=== PATIENT | female | born 1935 | race Caucasian/White ===

== ENCOUNTER 2017-02-03 14:04 | Inpatient (IN) | payer MEDICARE ==
--- NOTE | ~2017-02-03 | CR63 ---
[facility] of [facility] & [facility] RADIOLOGY TEXT RESULTS PATIENT: THO CEDENO LOCATION: [facility] 569-01 : 37 UNIT #: [id number] AGE: [address]: Arnaud Adhikari MD SEX: F ORDER DR: [id number] [facility] [address] [place], [place] [address] [id number] I MR#: [id number] Acc #: [id number] NAME: THO CEDENO : 1935 SEX: F STUDY DATE/TIME: 02/07/2017 13:45 UNIT: [facility] ROOM: [facility] STUDY DESCRIPTION: CR Chest 2 View Attending Physician: Arnaud Adhikari M.D. Ordering Physician: Arnaud Adhikari M.D. Primary Care Physician: Jerry Campa M.D. MEDICAL IMAGING REPORT This report is preliminary unless electronic signature is present EXAM Two-view chest. HISTORY Shortness of air, chest pain x1 month. COMPARISON 02/05/17 FINDINGS Two-view of the chest demonstrates low lung volumes. Small amount of bibasilar atelectasis. Stable cardiomegaly, and diffuse aortic atherosclerotic changes. Generalized osteopenia with mild accentuation of the thoracic kyphosis with mild mid thoracic degenerative change. No sizeable effusions. No focal airspace disease. No pneumothorax. IMPRESSION Stable cardiomegaly and diffuse aortic atherosclerotic changes. Minimal bibasilar atelectasis. Dictated by... Juan Miguel Mitchell M.D. THIS IS AN ELECTRONICALLY VERIFIED REPORT Juan Miguel Mitchell M.D. at 02/07/2017 8:27 PM Lilian TD: 02/07/2017 17:26 JOB #: [id number] MEDICAL IMAGING REPORT Page 1 of 1 COPY
--- NOTE | ~2017-02-03 | CO ---
Unit #: [id number] #: [id number] Patient: THO THOMSON [id number] [address] [place], [place] [address] [id number] I MR#: [id number] NAME: THO THOMSON ROOM: 569 Age: 81 Sex: F Admission Date: 02/03/2017 : 1935 Attending Physician: Arnaud Adhikari M.D. Primary Care Physician: Jerry Campa M.D. Consultation Date: 02/04/2017 CONSULTATION REPORT HISTORY OF PRESENT ILLNESS Ms. Thomson is a 81-year-old white female, who is well known to our service. She sees Dr. Pepper and was hospitalized by him at [facility]. Hospitalist is Dr. Parvez Hernandez. She was admitted to [facility] last month for increasing shortness of breath, was treated in the usual fashion, and able to be discharged home. However, she has had increasing shortness of breath, but no sputum production, fever, chills, hemoptysis, or hoarseness. PAST MEDICAL HISTORY Significant for colon cancer, pancreatic cancer, hypertension, history of PE in the past, pulmonary fibrosis, and kidney disease. PAST SURGICAL HISTORY Includes appendectomy, breast surgery, cholecystectomy, colon surgery, hysterectomy, ovarian cyst removal and pancreatic surgery. ALLERGIES She claims allergies to codeine, Demerol, penicillin, streptomycin, sulfa, and Terramycin. FAMILY HISTORY Noncontributory. SOCIAL HISTORY Negative for smoking, drinking or illicit drug use. REVIEW OF SYSTEMS Mainly significant for weakness, shortness of breath, and easy fatigability. PHYSICAL EXAMINATION GENERAL: She is a heavy-set white female, in no acute distress. HEAD AND NECK: Significant for clean oropharynx. Pupils are round and reactive to light. Sclerae nonicteric. NECK: No supraclavicular or cervical adenopathy. Trachea is midline. Thyroid is small. CHEST: There is increased AP diameter of the chest with rales bilaterally. CARDIAC: Systolic murmurs present without rubs or gallops. ABDOMEN: Soft, nontender, without enlargement of liver or spleen. EXTREMITIES: Showed no clubbing, cyanosis or edema. JOINTS: Free of effusions or inflammation. There was no gross inflammatory rash and very little edema. She has truncal obesity. NEUROLOGIC: She is awake, alert, and oriented x3. She had no signs of Unit #: [id number] #: [id number] Patient: THO THOMSON acute neurologic demise or asymmetry. DIAGNOSTIC STUDIES LABORATORY RESULTS: Significant blood work, cultures are pending. Her sodium was 141, potassium 4.1, chloride 106, CO2 of 26, glucose 100, BUN of 33, creatinine 1.9. IMAGING STUDIES: Ventilation perfusion scan showed multiple perfusion defects, consistent with her chest x-ray which was fairly clear. Ventilation was within normal limits. IMPRESSION Acute on chronic respiratory failure. This may have probably related to mild degree of pulmonary fibrosis. We will plan on supplemental oxygen and inhaled bronchodilators, and IV steroids and p.o. antibiotics. Thank you very much for allowing us to participate in the care. Dictated by... Lori Ayon/jeremy TD: 02/05/2017 07:36 JOB #: [id number] CONSULTATION REPORT Page 1 of 1 X Antonio Baltazar MD X CONSULTATION REPORT
--- NOTE | ~2017-02-03 | CR72 ---
[facility] A Service of [facility] RADIOLOGY TEXT RESULTS PATIENT: THO CEDENO LOCATION: [place] [address] : 37 UNIT #: [id number] AGE: [address]: Arnaud Adhikari MD SEX: F ORDER DR: [id number] [facility] [address] [place], [place] [address] [id number] I MR#: [id number] Acc #: [id number] NAME: THO CEDENO : 1935 SEX: F STUDY DATE/TIME: 02/03/2017 1502 UNIT: [facility] ROOM: 10177 STUDY DESCRIPTION: CR Chest Single View Portable Attending Physician: Po Torres M.D. Ordering Physician: Aryan Reyes M.D. Primary Care Physician: Jerry Campa M.D. MEDICAL IMAGING REPORT This report is preliminary unless electronic signature is present EXAM Chest portable 02/03/2017 1502 hours CLINICAL HISTORY Shortness of air for 1 month. History of hypertension and colon carcinoma. COMPARISON Chest CT 04/12/2016 and portable chest film 04/13/2011 FINDINGS Portable upright chest demonstrates cardiomegaly and tortuous aorta. Lung volumes are slightly decreased. There are increased interstitial markings with basilar predominance. Prior high-resolution CT demonstrated nonspecific interstitial change with lower lobe predominance. Findings are felt likely chronic. IMPRESSION Low lung volumes with stable mild cardiomegaly and tortuous aorta. There is interstitial prominence in the mid and lower lung similar to CT scan 04/12/2016 perhaps increased from chest x-ray 2010. No definite acute pulmonary or pleural findings. Dictated by... Monica Tony M.D. THIS IS AN ELECTRONICALLY VERIFIED REPORT Monica Tony M.D. at 02/06/2017 10:35 AM Jose Eduardo TD: 02/03/2017 18:51 JOB #: [id number] MEDICAL IMAGING REPORT [facility] A Service of [facility] RADIOLOGY TEXT RESULTS PATIENT: THO CEDENO LOCATION: [facility] 569-01 : 37 UNIT #: [id number] AGE: [address]: Arnaud Adhikari MD SEX: F ORDER DR: Page 1 of 1 COPY
--- NOTE | ~2017-02-03 | HP ---
Unit #: [id number] #: [id number] Patient: THO CEDENO [id number] [place] [id number] [facility]. [place], [place] [address] [id number] I MR#: [id number] NAME: THO CEDENO ROOM: 91705 Age: 81 Sex: F Admission Date: 02/03/2017 : 1935 Attending Physician: Cristal Torres M.D. Primary Care Physician: Jerry Campa M.D. HISTORY AND PHYSICAL CHIEF COMPLAINT Shortness of breath. HISTORY OF PRESENT ILLNESS The patient is a 81-year-old female with a past medical history of COPD, pulmonary fibrosis, hypertension, colon and pancreatis cancer treated 19 years ago, brought to the emergency room complaining of the shortness of breath. The patient was recently discharged from the [facility] on the 04 of January with a history of DVTs and was started on the Eliquis and for the exacerbation of COPD. The patient stated the patient's shortness of breath started a month ago and has been gradually worsening to the point that she said that the patient was sent by the PCP to the hospital today. The patient denies any productive cough. The patient was started on the oral prednisone for the COPD exacerbation; denies any fever, chills, nausea or vomiting or chest pain. PAST MEDICAL HISTORY History of colon and pancreatic cancer, hypertension, history of a PE in the past, pulmonary fibrosis and kidney disease. PAST SURGICAL HISTORY Appendectomy, breast surgery, cholecystectomy, colon surgery, hysterectomy, ovarian cyst removal and pancreatic surgery. ALLERGIES Codeine, Demerol, penicillin, streptomycin, sulfa and Terramycin. FAMILY HISTORY Reviewed and none. SOCIAL HISTORY No history of smoking, alcohol or any illicit drug abuse use. REVIEW OF SYMPTOMS Fourteen-point review of symptoms performed and only pertinent positive findings as described above, remaining are negative. PHYSICAL EXAMINATION GENERAL APPEARANCE: On examination the patient is lying on a bed not in acute distress. VITAL SIGNS: Temperature 97.9, pulse 90, respiratory rate 18, blood pressure 123/84, sating 98% at 2L nasal cannula. HEENT: Head atraumatic/normocephalic. Pupils equal, round and reacting Unit #: [id number] #: [id number] Patient: WILIAN,THO to light and accommodation. Extraocular movements are intact. Dry mucous membrane. NECK: Supple. No JVD. LUNGS: Decreased air entry at the bases. Positive for wheezing. HEART: Regular rate and rhythm. ABDOMEN: Soft, positive bowel sounds. EXTREMITIES: No cyanosis. No clubbing. NEUROLOGIC: Alert, awake, oriented. No gross focal motor deficit. DIAGNOSTIC STUDIES LABORATORY DATA: INR is 1, sodium 140, potassium 3.6, chloride 101, bicarb 27, glucose 142, BUN 37, creatinine 2.1, calcium 8.9, AST 23, ALT is 16, alkaline phosphatase 59, WBC 11.8, hemoglobin 14.1, hematocrit 43.4, platelets 149, BNP is 245, lactic acid is 2.9, troponin less than 0.05. IMAGING: Chest x-ray shows low lung volumes and cardiomegaly in the past. No acute cardiopulmonary process. ASSESSMENT 1. Chronic obstructive pulmonary disease exacerbation. 2. Pulmonary fibrosis. 3. History of a deep venous thrombosis. 4. Acute kidney injury. PLAN Plan to admit the patient to the inpatient. Patient will be on IV steroid, Solu-Medrol 40 mEq q.8 h., and IV antibiotic levofloxacin and continue with the sepsis protocol. Will have the consultation here and the renal consult for the acute kidney injury and continue with the sepsis protocol and check the ABG and V/Q scan to rule out the PE and further recommendations will follow. Dictated by Lori Cardenas/kiesha TD: 02/03/2017 18:04 JOB #: [id number] HISTORY AND PHYSICAL Page 1 of 1 X CRISTAL TORRES MD HISTORY AND PHYSICAL
--- NOTE | ~2017-02-03 | NM69 ---
[facility] RADIOLOGY TEXT RESULTS PATIENT: THO CEDENO LOCATION: [facility] 569-01 : 37 UNIT #: [id number] AGE: [address]: Arnaud Adhikari MD SEX: F ORDER DR: [id number] [place] [id number] [facility]. [place], [place] [address] [id number] I MR#: [id number] Acc #: [id number] NAME: THO CEDENO : 1935 SEX: F STUDY DATE/TIME: 02/07/2017 10:10 UNIT: [facility] ROOM: [facility] STUDY DESCRIPTION: NM Pulm Vent and Perf Attending Physician: Arnaud Adhikari M.D. Ordering Physician: Preston Hernandez M.D. Primary Care Physician: Jerry Campa M.D. MEDICAL IMAGING REPORT This report is preliminary unless electronic signature is present EXAM V/Q scan. INDICATIONS Shortness of breath that started Monday night. The patient had a V/Q scan performed February 03, 2017. This could not be interpreted as high intermediate or low probability because the ventilation images were nondiagnostic. However, at that time, multiple perfusion defects were considered to be suspicious for pulmonary embolus. COMPARISON Comparison is made to PA and lateral chest radiograph performed today at 1:45 p.m. TECHNIQUE This does show cardiomegaly and overall diminished lung volumes. Atelectasis at the lung bases appears to have worsened when compared to the prior examination, although, I am not convinced I can see any new infiltrates. Patient was administered 32.3 mCi of technetium 99m DTPA and 5.73 mCi of technetium 99 MAA particles and images in multiple obliquities were obtained. FINDINGS Patient has at least 2 ventilation-perfusion mismatches. One seen within the left lung apex posteriorly and the other noted on both the TYLER and RPO images on the right. Study is felt to be high probability for pulmonary embolus. IMPRESSION High probability of V/Q scan. Dictated by... [facility] RADIOLOGY TEXT RESULTS PATIENT: THO CEDENO LOCATION: [facility] 569-01 : 37 UNIT #: [id number] AGE: [address]: Arnaud Adhikari MD SEX: F ORDER DR: Felicita Padgett M.D. THIS IS AN ELECTRONICALLY VERIFIED REPORT Felicita Padgett M.D. at 02/08/2017 4:51 PM AFF/jt TD: 02/07/2017 18:38 JOB #: [id number] MEDICAL IMAGING REPORT Page 1 of 1 COPY
--- NOTE | ~2017-02-03 | DS ---
Unit #: [id number] #: [id number] Patient: THO CEDENO [id number] [address] [address] [id number] I MR#: [id number] NAME: THO CEDENO ROOM: 569 Age: 81 Sex: F Admission Date: 02/03/2017 : 1935 Discharge Date: 02/08/2017 Attending Physician: Arnaud Adhikari M.D. Primary Care Physician: Jerry Campa M.D. DISCHARGE SUMMARY DISCHARGE DIAGNOSES 1. Acute on chronic hypoxic respiratory failure. 2. Pulmonary fibrosis. 3. Pulmonary embolism. 4. Acute kidney injury. 5. Drug-induced encephalopathy. 6. B12 deficiency. HOSPITAL COURSE The patient is a 81-year-old female who presented to the [facility] emergency department complaining of worsening shortness of breath. She had had hospitalization back in December for DVT, and was started on Eliquis. Patient had become suddenly worse in her shortness of breath and presented, and as a result was admitted. Additionally, the patient was noted to have creatinine of 2.1 consistent with an acute kidney injury. Patient was initially thought to be having COPD exacerbation because of some increased hypoxia and wheezing. Her normal 2 L of oxygen at home was increased to 4 to maintain her oxygen saturations. She was started on IV Solu-Medrol. The initial V/Q scan was read as inconclusive. Patient did become acutely confused the day following admission. She was unable to tell where she was, and was only noted to be alert and oriented x1. Given the acuteness, it was felt to be secondary to medications with the most likely candidate being Solu-Medrol. The patient's Solu-Medrol was discontinued and the patient's encephalopathy resolved the day prior to discharge. Given the inconclusive nature of her V/Q scan, the patient underwent a second V/Q scan which was noted to be high probability. At this time, it is felt that the patient's worsening of her respiratory failure is due to a PE. Patient was continued on her Eliquis and she is to follow-up with Pulmonary. During evaluation for her encephalopathy, the patient was incidentally noted to have a B12 level less than 50, and has been started on B12 replacement. DISCHARGE MEDICATIONS 1. Metoprolol succinate 100 mg p.o. daily. 2. Protonix 40 mg daily. 3. Phenergan 25 mg p.o. q.4 hours. Unit #: [id number] #: [id number] Patient: THO CEDENO 4. Prednisone 40 mg daily. 5. Aspirin 81 mg daily. 6. Lasix 40 mg p.o. daily. 7. Hydrochlorothiazide 25 mg p.o. daily. FOLLOW UP As mentioned above, the patient should follow-up with Dr. Mikal Hernandez, at a time to be determined by his office. Additionally, she should follow up with her primary care provider, Dr. Campa, at the earliest available appointment. Dictated by... Arnaud Adhikari M.D. ORLANDO/sarai TD: 02/08/2017 21:22 JOB #: [id number] DISCHARGE SUMMARY Page 1 of 1 X Arnaud Adhikari MD X DISCHARGE SUMMARY
--- NOTE | ~2017-02-03 | NM69 ---
[facility] A Service of [facility] & [facility] RADIOLOGY TEXT RESULTS PATIENT: THO CEDENO LOCATION: [facility] 569-01 : 37 UNIT #: [id number] AGE: [address]: CIRSTAL TORRES MD SEX: F ORDER DR: [id number] [facility] [address] [facility] [address] [facility] [place], [place] [address] [id number] I MR#: [id number] Acc #: [id number] NAME: THO CEDENO : 1935 SEX: F STUDY DATE/TIME: 02/03/2017 21:22 UNIT: [facility] ROOM: [facility] STUDY DESCRIPTION: NM Pulm Vent and Perf Attending Physician: Crisatl Torres M.D. Ordering Physician: Aryan Reyes M.D. Primary Care Physician: Jerry Campa M.D. MEDICAL IMAGING REPORT This report is preliminary unless electronic signature is present EXAM Ventilation-perfusion lung scan, 02/03/17. HISTORY 81-year-old female complaining of 6-month history of shortness of air. History of DVT. DOSE 29.2 mCi technetium labeled DTPA inhaled in aerosol. 4.23 mCi technetium labeled MAA intravenously. FINDINGS The examination shows several segmental and nonsegmental perfusion defects in both lungs, concerning for potential pulmonary embolism. However, ventilation images are nondiagnostic due to lack of activity within the lungs. Most of the inhaled tracer is present within the trachea and central bronchi. Probability of pulmonary embolism cannot be assessed on this study. IMPRESSION 1. Multifocal perfusion defects are concerning for pulmonary embolism. However, the ventilation study is nondiagnostic as noted above. STAT * RESULT Dictated by... Jas Leung M.D. THIS IS AN ELECTRONICALLY VERIFIED REPORT Jas Leung M.D. at 02/03/2017 10:23 PM RGW/jt [facility] A Service of [facility] & [facility] RADIOLOGY TEXT RESULTS PATIENT: THO CEDENO LOCATION: [facility] 569-01 : 37 UNIT #: [id number] AGE: [address]: CRISTAL TORRES MD SEX: F ORDER DR: TD: 02/03/2017 22:11 JOB #: [id number] MEDICAL IMAGING REPORT Page 1 of 1 COPY
--- NOTE | ~2017-02-03 | CR63 ---
[facility] A Service of [facility] & [facility] RADIOLOGY TEXT RESULTS PATIENT: THO CEDENO LOCATION: [facility] 569-01 : 37 UNIT #: [id number] AGE: [address]: Arnaud Adhikari MD SEX: F ORDER DR: [id number] [facility] [address] [place], [place] [address] [id number] I MR#: [id number] Acc #: [id number] NAME: THO CEDENO : 1935 SEX: F STUDY DATE/TIME: 02/05/2017 9:59 UNIT: [facility] ROOM: [facility] STUDY DESCRIPTION: CR Chest 2 View Attending Physician: Arnaud Adhikari M.D. Ordering Physician: Arnaud Adhikari M.D. Primary Care Physician: Jerry Campa M.D. MEDICAL IMAGING REPORT This report is preliminary unless electronic signature is present EXAM PA and lateral chest INDICATIONS Shortness of breath for 1 month. COMPARISON 02/03/2017. FINDINGS There is slightly increased atelectasis within both lung bases. Heart size stable. Increased thoracic kyphosis. IMPRESSION Slightly increased atelectasis in both lung base. Dictated by... Kendall Mitchell M.D. THIS IS AN ELECTRONICALLY VERIFIED REPORT Kendall Mitchell M.D. at 02/06/2017 7:50 AM ARS/pcl TD: 02/05/2017 13:53 JOB #: [id number] MEDICAL IMAGING REPORT Page 1 of 1 COPY
--- NOTE | ~2017-02-03 | EKG ---
PATIENT: THO CEDENO UNIT #: [id number] Ventricular Rate: 89 BPM Atrial Rate: 89 BPM P-R Interval: 140 ms QRS Duration: 100 ms Q-T Interval: 388 ms QTC Calculation(Bezet): 472 ms P [place]: 35 degrees Calculated R [place]: -51 degrees Calculated T [place]: -13 degrees Diagnosis Line: Normal sinus rhythm Diagnosis Line: Left axis deviation Diagnosis Line: Minimal voltage criteria for LVH, may be normal Diagnosis Line: variant Diagnosis Line: Possible Anterolateral infarct , age undetermined Diagnosis Line: inferior wall ischemia noted Diagnosis Line: Abnormal ECG Diagnosis Line: When compared with ECG of 13-APR-2011 13:04, Diagnosis Line: Significant changes have occurred Diagnosis Line: Confirmed by AMY ARRIOLA MD ([id number]) on Diagnosis Line: 02/03/2017 4:29:21 PM INTERPRETING MD: NAVNEET
--- NOTE | ~2017-02-03 | US84 ---
[id number] [facility]. [facility] [address]. [place], [place] [address] [id number] I MR#: [id number] Acc #: [id number] NAME: THO CEDENO : 1935 SEX: F STUDY DATE/TIME: 02/06/2017 16:31 UNIT: [facility] ROOM: 569 STUDY DESCRIPTION: US LE Veins Complete Lev Stdy Attending Physician: Arnaud Adhikari M.D. Ordering Physician: Preston Hernandez M.D. Primary Care Physician: Jerry Campa M.D. MEDICAL IMAGING REPORT This report is preliminary unless electronic signature is present EXAM Bilateral lower extremity venous Doppler, 02/06/2017 HISTORY Bilateral leg pain and swelling for 6 months with elevated D-dimer. PROCEDURE Subramanian-scale imaging, color Doppler flow imaging and Doppler waveform analysis. FINDINGS There is normal color flow, compressibility, and where appropriate, respiratory phasicity and/or augmentation throughout the entire lower extremity deep venous system as well as in the superficial saphenous veins bilaterally. On the right, there is an approximately 4 x 4 x 1.5 cm Pepper's cyst in the popliteal fossa. IMPRESSION 1. Negative bilateral lower extremity venous Doppler, no evidence of DVT. 2. Incidental right popliteal fossa Pepper's cyst. Dictated by... Juve Martínez M.D. THIS IS AN ELECTRONICALLY VERIFIED REPORT Juve Martínez M.D. at 02/07/2017 3:57 PM TEV/psc TD: 02/07/2017 04:41 JOB #: [id number] MEDICAL IMAGING REPORT Page 1 of 1 COPY
--- NOTE | ~2017-02-03 | US77 ---
[facility] A Service of [facility] & [facility] RADIOLOGY TEXT RESULTS PATIENT: THO CEDENO LOCATION: [facility] 569-01 : 37 UNIT #: [id number] AGE: [address]: Arnaud Adhikari MD SEX: F ORDER DR: [id number] [facility] [address] [place], [place] [address] [id number] I MR#: [id number] Acc #: [id number] NAME: THO CEDENO : 1935 SEX: F STUDY DATE/TIME: 02/04/2017 9:20 UNIT: [facility] ROOM: [facility] STUDY DESCRIPTION: US Kidney Bilateral Complete Attending Physician: Arnaud Adhikari M.D. Ordering Physician: Babar George M.D. Primary Care Physician: Jerry Campa M.D. MEDICAL IMAGING REPORT This report is preliminary unless electronic signature is present EXAM Bilateral renal ultrasound. HISTORY Acute renal insufficiency. FINDINGS Ultrasound examination of both kidneys demonstrates moderate left hydronephrosis. No hydronephrosis on the right. 3.6 cm simple cyst in the mid-left kidney. No additional renal mass is identified. The right kidney measures approximately 10.4 cm in length and the left kidney measures 8.7 cm in length. Moderate generalized left renal parenchymal atrophy is similar to CT 07/02/11, and the left hydronephrosis is slightly decreased as compared to the prior CT. Survey of the urinary bladder is normal. IMPRESSION 1. Moderate left hydronephrosis has decreased slightly compared to CT 07/02/11. 2. 3.6 cm simple cyst in the left kidney incidentally noted. 3. No right hydronephrosis or right renal mass. 4. Moderate generalized left renal parenchymal atrophy. 5. Survey of the urinary bladder is normal. Dictated by... Suman Santiago M.D. THIS IS AN ELECTRONICALLY VERIFIED REPORT Suman Santiago M.D. at 02/04/2017 10:49 PM STEVEN/sarai [facility] A Service of [facility] & [facility] RADIOLOGY TEXT RESULTS PATIENT: THO CEDENO LOCATION: [facility] 569-01 : 37 UNIT #: [id number] AGE: [address]: Arnaud Adhikari MD SEX: F ORDER DR: TD: 02/04/2017 15:47 JOB #: [id number] MEDICAL IMAGING REPORT Page 1 of 1 COPY
--- NOTE | ~2017-02-03 | EKG ---
PATIENT: THO CEDENO UNIT #: [id number] Ventricular Rate: 88 BPM Atrial Rate: 88 BPM P-R Interval: 138 ms QRS Duration: 98 ms Q-T Interval: 414 ms QTC Calculation(Bezet): 500 ms P [place]: 38 degrees Calculated R [place]: -49 degrees Calculated T [place]: -12 degrees Diagnosis Line: Normal sinus rhythm Diagnosis Line: Left axis deviation Diagnosis Line: Moderate voltage criteria for LVH, may be normal Diagnosis Line: variant Diagnosis Line: Possible Lateral infarct (cited on or before Diagnosis Line: 03-FEB-2017) Diagnosis Line: Abnormal ECG Diagnosis Line: When compared with ECG of 03-FEB-2017 14:49, Diagnosis Line: (unconfirmed) Diagnosis Line: No significant change was found Diagnosis Line: Confirmed by FLAKO PAULINO, AMY ([id number]) on Diagnosis Line: 02/05/2017 10:41:56 AM INTERPRETING MDEmmanuel TOTH
[~2017-02-03 14:04] MED LIST: ASPIRIN EC81 M1 PO; ASPIRIN PO; CALCIUM 600 W/V1 TA2 PO; ECOTRIN81 M1 PO; FLEXERIL10 MG PO; HYDRALAZINE HCL50 MG PO; HYDROCODONE-APA1 T57 PO; LASIX PO; LASIX20 MG PO; LISINOPRIL PO; LOSARTAN POTASS50 MG PO; METOPROLOL TAR100 MG PO; PHENERGAN25 MG PO; VICODIN 5/1 TAB 5/50 PO; WELCHOL625 MG PO; ZOCOR PO; ZOCOR20 MG PO
[2017-02-03 15:10] LABS: BASOPHIL# 0.1 X10e3 (0-0.3); BASOPHIL% 0.6 % (0-2.5); EOSINOPHIL# 0.1 X10e3 (0-0.7); EOSINOPHIL% 0.6 % (0.0-7.0); HEMATOCRIT 43.4 % (35.0-45.0); HEMOGLOBIN 14.1 gm/dL (12.0-16.0); LYMPHOCYTE# 1.2 X10e3 (1.0-3.5); LYMPHOCYTE% 9.9 % (17.0-45.0); MEAN CELL VOLUME 109.3 FL (83-96); MEAN CORPUSCULAR HEMOGLOBIN 35.5 PG (28-34); MEAN CORPUSCULAR HGB CONC 32.5 g/dL (30-36); MEAN PLATELET VOLUME 9.4 FL (6.5-11.5); MONOCYTE# 0.2 X10e3 (0-1.0); MONOCYTE% 1.4 % (3.0-12.0); NEUTROPHIL# 10.3 X10e3 (1.5-7.1); NEUTROPHIL% 87.5 % (40-75); PLATELET COUNT 149 X10e3 (140-420); RED BLOOD COUNT 3.97 X10e (3.90-5.30); RED CELL DISTRIBUTION WIDTH 15.8 % (11.0-15.5); WHITE BLOOD COUNT 11.8 X10e3 (4.0-10.5)
[2017-02-03 15:12] LABS: DIFF IND YES
[2017-02-03 15:19] LABS: PROTHROMBIN TIME (PATIENT) 10.9 SECONDS (10.0-11.7)
[2017-02-03 15:32] LABS: ALBUMIN SERUM 4.1 g/dL (3.5-5.0); BILIRUBIN, DIRECT 0.1 mg/dL (0.0-0.2); BILIRUBIN,INDIRECT 0.8 mg/dL (0.0-0.9); BILIRUBIN,TOTAL 0.9 mg/dL (0.2-2.0); BUN/CREATININE RATIO 17.61; CALCIUM SERUM 8.9 mg/dL (8.4-10.2); CREATININE SERUM 2.1 mg/dL (0.6-1.4); GLOM FILT RATE Estimated 21.8 mL/min (>60); POTASSIUM 3.6 mmol/L (3.5-5.1); PROTEIN TOTAL SERUM 6.8 g/dL (6.0-8.3)
[2017-02-03 15:38] LABS: PLATELET ESTIMATE NORMAL (NORMAL)
[2017-02-03] MEDS ORDERED: HCTZ PO (16:20)
[2017-02-03] MEDS ORDERED: LASIX PO (16:21)
[2017-02-03 16:22] LABS: POC - CKMB 1.2 ng/mL (0.0-7.9); POC - TROPONIN <0.05 ng/mL (<=0.05)
[2017-02-03] MEDS ORDERED: ASPIRIN81 MG PO (16:22)
[2017-02-03] MEDS ORDERED: PREDNISONE PO (16:22)
[2017-02-03] MEDS ORDERED: PHENERGAN25 MG PO (16:23)
[2017-02-03] MEDS ORDERED: PROTONIX PO (16:23)
[2017-02-03] MEDS ORDERED: METOPROLOL SUC100 MG PO (16:24)
[2017-02-03 17:47] LABS: URINE SOURCE CLEAN CATCH
[2017-02-03 17:56] LABS: ARTERIAL BLOOD GAS HCO3 23.3 mmol/L; ARTERIAL BLOOD GAS PCO2 31.7 mmHg (35.0-45.0); ARTERIAL BLOOD GAS pH 7.475 (7.350-7.450)
[2017-02-03 17:57] LABS: ARTERIAL BLD GAS O2 SATURATION 97.9 % (90.0-100.0); ARTERIAL BLOOD GAS ALLEN TEST NORMAL; ARTERIAL BLOOD GAS ART SITE RIGHT RADIAL; ARTERIAL BLOOD GAS CARBOXY HB 0.8 %sat (0.0-9.0); ARTERIAL BLOOD GAS DELIVERY NASAL CANNULA; ARTERIAL BLOOD GAS MET HB 0.8 %sat (0.0-2.0); ARTERIAL DRAW? YES
[2017-02-03 18:01] LABS: URINE APPEARANCE CLEAR; URINE BILIRUBIN NEG (NEG); URINE BLOOD TRACE (NEG); URINE COLOR YELLOW; URINE GLUCOSE NEG (NEG); URINE KETONE NEG (NEG); URINE LEUKOCYTE ESTERASE TRACE (NEG); URINE NITRATE NEG (NEG); URINE PROTEIN NEG (NEG); URINE UROBILINOGEN 0.2 MG/DL (NEG)
[2017-02-03 18:09] LABS: CULTURE INDICATED? YES; URINE BACTERIA AUWI 2+ (NEGATIVE); URINE SQUAMOUS EPITHELIAL CELL NONE SEEN /[HPF]; UWBCS1 AUWI 0-2 (0-5)
[2017-02-03 18:38] LABS: CREATININE,RANDOM URINE 43 mg/dL; SODIUM URINE RANDOM 106 mmol/L
[2017-02-04 04:13] LABS: URINE APPEARANCE CLEAR; URINE BILIRUBIN NEG (NEG); URINE BLOOD 1+ (NEG); URINE COLOR YELLOW; URINE GLUCOSE 250 MG/DL (NEG); URINE KETONE NEG (NEG); URINE LEUKOCYTE ESTERASE NEG (NEG); URINE NITRATE NEG (NEG); URINE PROTEIN NEG (NEG); URINE SPECIFIC GRAVITY 1.014 (1.003-1.035); URINE UROBILINOGEN 0.2 MG/DL (NEG)
[2017-02-04 04:15] LABS: URINE BACTERIA AUWI NEG (NEGATIVE); URINE SQUAMOUS EPITHELIAL CELL NONE SEEN /[HPF]; UWBCS1 AUWI 0-2 (0-5)
[2017-02-04 04:17] LABS: CULTURE INDICATED? NO
[2017-02-04 06:38] LABS: BUN/CREATININE RATIO 17.36; CALCIUM SERUM 8.4 mg/dL (8.4-10.2); CREATININE SERUM 1.9 mg/dL (0.6-1.4); GLOM FILT RATE Estimated 24.6 mL/min (>60); POTASSIUM 4.1 mmol/L (3.5-5.1)
[2017-02-05 06:13] LABS: BUN/CREATININE RATIO 21.42; CALCIUM SERUM 8.4 mg/dL (8.4-10.2); CREATININE SERUM 1.4 mg/dL (0.6-1.4); GLOM FILT RATE Estimated 35.6 mL/min (>60); POTASSIUM 4.8 mmol/L (3.5-5.1)
[2017-02-05 08:12] LABS: HEMATOCRIT 33.1 % (35.0-45.0); MEAN CELL VOLUME 109.6 FL (83-96); MEAN CORPUSCULAR HEMOGLOBIN 35.6 PG (28-34); MEAN CORPUSCULAR HGB CONC 32.5 g/dL (30-36); MEAN PLATELET VOLUME 9.5 FL (6.5-11.5); RED BLOOD COUNT 3.02 X10e (3.90-5.30); RED CELL DISTRIBUTION WIDTH 16.1 % (11.0-15.5)
[2017-02-05 08:21] LABS: HEMOGLOBIN 10.8 gm/dL (12.0-16.0)
[2017-02-06 07:45] LABS: HEMATOCRIT 34.6 % (35.0-45.0); HEMOGLOBIN 11.5 gm/dL (12.0-16.0); MEAN CELL VOLUME 108.9 FL (83-96); MEAN CORPUSCULAR HEMOGLOBIN 36.3 PG (28-34); MEAN CORPUSCULAR HGB CONC 33.3 g/dL (30-36); MEAN PLATELET VOLUME 9.7 FL (6.5-11.5); RED BLOOD COUNT 3.18 X10e (3.90-5.30); RED CELL DISTRIBUTION WIDTH 15.7 % (11.0-15.5); WHITE BLOOD COUNT 8.9 X10e3 (4.0-10.5)
[2017-02-06 08:15] LABS: BUN/CREATININE RATIO 23.63; CALCIUM SERUM 8.6 mg/dL (8.4-10.2); CREATININE SERUM 1.1 mg/dL (0.6-1.4); GLOM FILT RATE Estimated 47.7 mL/min (>60); POTASSIUM 4.5 mmol/L (3.5-5.1)
[2017-02-07 04:42] LABS: HEMATOCRIT 34.3 % (35.0-45.0); HEMOGLOBIN 11.4 gm/dL (12.0-16.0); MEAN CELL VOLUME 107.5 FL (83-96); MEAN CORPUSCULAR HEMOGLOBIN 35.7 PG (28-34); MEAN CORPUSCULAR HGB CONC 33.2 g/dL (30-36); MEAN PLATELET VOLUME 9.2 FL (6.5-11.5); RED BLOOD COUNT 3.19 X10e (3.90-5.30); RED CELL DISTRIBUTION WIDTH 15.3 % (11.0-15.5); WHITE BLOOD COUNT 7.2 X10e3 (4.0-10.5)
[2017-02-07 05:05] LABS: CALCIUM SERUM 8.6 mg/dL (8.4-10.2); CREATININE SERUM 1.3 mg/dL (0.6-1.4)
[2017-02-08] MEDS ORDERED: COMBIVENT U/D3 M1 INH (14:36)
[2017-02-08] MEDS ORDERED: ELIQUIS5 MG PO (14:37)
[2017-02-08] MEDS ORDERED: B-121000 MC1 PO (14:39)
== END 2017-02-08 18:18 | disposition home or self-care (01) | DRG 190 ==
LOC: CED 14:04 → CEDOF 16:34 → CED 17:06 → CEDOF 17:06 → C5C 19:46
PROVIDERS: Emergency Medicine; Internal Medicine
PROC: B246YZZ Ultrasonography of Right and Left Heart using Other Contrast (ICD-10-PCS; principal; 2017-02-06)
DX: J44.1 Chronic obstructive pulmonary disease with (acute) exacerbation (principal); J96.21 Acute and chronic respiratory failure with hypoxia; N17.9 Acute kidney failure, unspecified; G93.40 Encephalopathy, unspecified; J84.10 Pulmonary fibrosis, unspecified; Z86.718 Personal history of other venous thrombosis and embolism; I10 Essential (primary) hypertension; Z90.49 Acquired absence of other specified parts of digestive tract; Z90.710 Acquired absence of both cervix and uterus; Z88.5 Allergy status to narcotic agent; Z88.0 Allergy status to penicillin; Z88.2 Allergy status to sulfonamides; Z88.8 Allergy status to other drugs, medicaments and biological substances; I27.2 Other secondary pulmonary hypertension; E53.8 Deficiency of other specified B group vitamins
CPT/HCPCS: 36415; 36600; 71010; 71020; 76770; 78582; 80048; 80076; 81003; 82308; 82553; 82570; 82607; 82746; 82803; 83605; 83880; 84300; 84484; 85025; 85027; 85379; 85610; 87040; 87086; 93005; 93306; 93970; 94640; 94760; 96374; 99285; A9540; A9567; J0696; J1956; J2060; J2920; J2930; J3420

== ENCOUNTER 2017-04-17 10:15 | Emergency (ER) | payer MEDICARE ==
[~2017-04-17] VITALS: Ht 170.2 cm; Wt 75.0 kg
--- NOTE | ~2017-04-17 | CR72 ---
[facility] A Service of [facility] & [facility] RADIOLOGY TEXT RESULTS PATIENT: THO CEDENO LOCATION: [facility] : 39 UNIT #: [id number] AGE: [address]: Dante Brooks MD SEX: F ORDER DR: [id number] [facility] [address] [place], [place] [address] [id number] MR#: [id number] Acc #: [id number] NAME: THO CEDENO : 1935 SEX: F STUDY DATE/TIME: 04/17/2017 13:04 UNIT: [facility] ROOM: STUDY DESCRIPTION: CR Chest Single View Portable Attending Physician: Dante Brooks M.D. Ordering Physician: Dante Brooks M.D. Primary Care Physician: Jerry Campa M.D. MEDICAL IMAGING REPORT This report is preliminary unless electronic signature is present EXAM Chest, portable, 04/17/2017, 1304 hours. CLINICAL HISTORY Shortness of air beginning this morning. History of COPD with remote history of colon cancer. COMPARISON 02/15/2017 FINDINGS Portable upright chest demonstrates mild cardiomegaly with tortuous aorta, unchanged. Lung volumes are low with mild interstitial prominence appearing similar to 02/07/2017, likely chronic. No effusion seen. IMPRESSION Low lung volume film with stable mild cardiomegaly, tortuous aorta. There is mild basilar interstitial prominence similar to 01/2017 likely chronic. No acute pulmonary or pleural findings. Dictated by... Monica Tony M.D. THIS IS AN ELECTRONICALLY VERIFIED REPORT Monica Tony M.D. at 04/18/2017 9:27 AM DEVANM/phil TD: 04/17/2017 20:17 JOB #: [id number] MEDICAL IMAGING REPORT [facility] A Service of [facility] & [facility] RADIOLOGY TEXT RESULTS PATIENT: THO CEDENO LOCATION: [facility] : 39 UNIT #: [id number] AGE: [address]: Dante Brooks MD SEX: F ORDER DR: Page 1 of 1 COPY
--- NOTE | ~2017-04-17 | EKG ---
PATIENT: THO CEDENO UNIT #: [id number] Ventricular Rate: 70 BPM Atrial Rate: 70 BPM P-R Interval: 130 ms QRS Duration: 84 ms Q-T Interval: 410 ms QTC Calculation(Bezet): 442 ms P [place]: 24 degrees Calculated R [place]: -80 degrees Calculated T [place]: 48 degrees Diagnosis Line: Normal sinus rhythm Diagnosis Line: Left axis deviation Diagnosis Line: Minimal voltage criteria for LVH, may be normal Diagnosis Line: variant Diagnosis Line: Cannot rule out Anterolateral infarct (cited on or Diagnosis Line: before 03-FEB-2017) Diagnosis Line: Abnormal ECG Diagnosis Line: When compared with ECG of 03-FEB-2017 15:06, Diagnosis Line: Questionable change in initial forces of Lateral Diagnosis Line: leads Diagnosis Line: T wave inversion no longer evident in Inferior Diagnosis Line: leads Diagnosis Line: Nonspecific T wave abnormality now evident in Diagnosis Line: Lateral leads Diagnosis Line: QT has shortened Diagnosis Line: Confirmed by SWAPNIL CASAS MD ([id number]) on 04/17/2017 Diagnosis Line: 8:01:41 PM INTERPRETING MD: YESSENIA PAULINO
[~2017-04-17 10:15] MED LIST changes: +ASPIRIN81 MG PO; +B-121000 MC1 PO; +COMBIVENT U/D3 M1 INH; +ELIQUIS5 MG PO; +HCTZ PO; +METOPROLOL SUC100 MG PO; +PREDNISONE PO; +PROTONIX PO
[2017-04-17 12:56] LABS: BASOPHIL# 0.1 X10e3 (0-0.3); DIFF IND NO; EOSINOPHIL# 0.1 X10e3 (0-0.7); EOSINOPHIL% 1.3 % (0.0-7.0); HEMATOCRIT 39.5 % (35.0-45.0); HEMOGLOBIN 13.4 gm/dL (12.0-16.0); LYMPHOCYTE# 3.1 X10e3 (1.0-3.5); LYMPHOCYTE% 33.6 % (17.0-45.0); MEAN CELL VOLUME 95.5 FL (83-96); MEAN CORPUSCULAR HEMOGLOBIN 32.4 PG (28-34); MEAN CORPUSCULAR HGB CONC 33.9 g/dL (30-36); MEAN PLATELET VOLUME 9.1 FL (6.5-11.5); MONOCYTE# 0.5 X10e3 (0-1.0); MONOCYTE% 5.4 % (3.0-12.0); NEUTROPHIL# 5.4 X10e3 (1.5-7.1); NEUTROPHIL% 58.7 % (40-75); PLATELET COUNT 183 X10e3 (140-420); RED BLOOD COUNT 4.14 X10e (3.90-5.30); RED CELL DISTRIBUTION WIDTH 14.8 % (11.0-15.5); WHITE BLOOD COUNT 9.2 X10e3 (4.0-10.5)
[2017-04-17 13:08] LABS: POC - CKMB <1.0 ng/mL (0.0-7.9); POC - TROPONIN <0.05 ng/mL (<=0.05)
[2017-04-17 13:22] LABS: ALBUMIN SERUM 3.6 g/dL (3.5-5.0); BILIRUBIN, DIRECT 0.1 mg/dL (0.0-0.2); BILIRUBIN,INDIRECT 0.7 mg/dL (0.0-0.9); BILIRUBIN,TOTAL 0.8 mg/dL (0.2-2.0); BUN/CREATININE RATIO 18.46; CALCIUM SERUM 9.3 mg/dL (8.4-10.2); CREATININE SERUM 1.3 mg/dL (0.6-1.4); GLOM FILT RATE Estimated 38.7 mL/min (>60); POTASSIUM 3.5 mmol/L (3.5-5.1)
== END 2017-04-17 15:21 | disposition home or self-care (01) ==
LOC: CED 10:15
PROVIDERS: Emergency Medicine
DX: R06.02 Shortness of breath (principal); Z88.0 Allergy status to penicillin; Z88.2 Allergy status to sulfonamides; Z88.1 Allergy status to other antibiotic agents; Z88.8 Allergy status to other drugs, medicaments and biological substances; Z79.82 Long term (current) use of aspirin; Z79.899 Other long term (current) drug therapy; Z86.73 Personal history of transient ischemic attack (TIA), and cerebral infarction without residual deficits; Z86.718 Personal history of other venous thrombosis and embolism; Z90.49 Acquired absence of other specified parts of digestive tract; Z90.710 Acquired absence of both cervix and uterus
CPT/HCPCS: 36415; 71010; 80048; 80076; 82553; 83880; 84484; 85025; 93005; 96374; 99285; J2930